=== PATIENT | male | born 1990 | race Caucasian/White ===

== ENCOUNTER 2017-08-17 22:40 | Emergency (ER) | payer MEDICARE, MEDICAID ==
[~2017-08-17] VITALS: Ht 180.3 cm; Wt 79.8 kg
[~2017-08-17 22:40] MED LIST: AMLO5TAB2 PO; AZIT250T89 PO; B12 PO; CORT80VI2 IM; CYCLOPHOSPHAMIDE IV; FOLIC ACID PO; FURO20TA3 PO; HYDR-3240 PO; HYDR-3241 PO; IRON PO; LISI-170 PO; METO25TA35 PO; MYCO500T PO; MYCO500T3 PO; OMEP-110 PO; ONDA4TAB10 PO; OXYC-306 PO; PANT40TA3 PO; POTA20PA25 PO; PRED10TA PO; PRED20TA PO; PRED50TA PO; PROM25VI5 PO; RIVA10TA PO; ZOLP10TA5 PO
[2017-08-17] MEDS ORDERED: SODIUM CHLORIDE 0.9% 1,000ML IVBOLUS ONE (23:30)
[2017-08-17] MEDS ORDERED: PROMETHAZINE 25 MG/ML, 1ML IM ONE (23:30)
[2017-08-17] MEDS ORDERED: FAMOTIDINE 20 MG/2 ML IVP ONE (23:30)
[2017-08-17] MEDS ORDERED: SODIUM CHLORIDE FLUSH 10ML SYR IVF ONE (23:30)
[2017-08-17] MEDS ORDERED: ONDANSETRON ODT 4 MG PO ONE (23:30)
[2017-08-17] MEDS ORDERED: MORPHINE SULFATE 4 MG/ML, 1ML IVPush PRN (23:30)
[2017-08-17 23:38] LABS: BASOPHILS # (AUTO) 0.02 x10^3/uL (0-0.1); BASOPHILS % (AUTO) 1 % (0-1); EOSINOPHILS # (AUTO) 0.01 x10^3/uL (0-0.4); EOSINOPHILS % (AUTO) 0 % (1-7); LYMPHOCYTES # (AUTO) 0.58 x10^3/uL (1-3.4); LYMPHOCYTES % (AUTO) 17 % (22-44); MD NO; MEAN CORPUSCULAR HEMOGLOBIN 30.1 pg (27.5-34.5); MEAN CORPUSCULAR HGB CONC 34.1 g/dL (33.2-36.2); MEAN CORPUSCULAR VOLUME 88.3 fL (81-97); MEAN PLATELET VOLUME 7.5 fL (7.4-10.4); MONOCYTES # (AUTO) 0.31 x10^3/uL (0.2-0.8); MONOCYTES % (AUTO) 9 % (2-9); NEUTROPHILS # (AUTO) 2.49 x10^3/uL (1.8-6.8); NEUTROPHILS % (AUTO) 73 % (42-75); PLATELET COUNT 354 x10^3/uL (130-400); RED BLOOD COUNT 4.08 x10^6/uL (4.38-5.82); RED CELL DISTRIBUTION WIDTH 12.7 % (9.4-14.8)
[2017-08-17] MEDS ORDERED: ONDANSETRON ODT 4 MG ONE (23:40)
[2017-08-17] MEDS ORDERED: PROMETHAZINE 25 MG/ML, 1ML ONE (23:40)
[2017-08-17] MEDS ORDERED: FAMOTIDINE 20 MG/2 ML ONE (23:40)
[2017-08-17] MEDS ORDERED: MORPHINE SULFATE 4 MG/ML, 1ML ONE (23:40)
[2017-08-17 23:46] LABS: ALANINE AMINOTRANSFERASE 70 U/L (12-78); ALBUMIN 3.2 g/dL (3.4-5.0); ANION GAP 7 mmol/L (5-15); CALCIUM 8.8 mg/dL (8.5-10.1); CHLORIDE 103 mmol/L (98-107); CREATININE 1.83 mg/dL (0.7-1.3)
[2017-08-17 23:48] LABS: ALKALINE PHOSPHATASE 93 U/L (45-117); BILIRUBIN,TOTAL 0.5 mg/dL (0.2-1.0); TOTAL PROTEIN 7.8 g/dL (6.4-8.2)
[2017-08-18 00:40] LABS: MICROSCOPIC INDICATED
[2017-08-18 00:55] LABS: CULTURE INDICATED? NO
[2017-08-18 01:22] VITALS: BP 145/78
== END 2017-08-18 01:36 | disposition home or self-care (01) ==
LOC: ED 23:25
DX: R11.2 Nausea with vomiting, unspecified (principal); R10.84 Generalized abdominal pain; R19.7 Diarrhea, unspecified; M06.9 Rheumatoid arthritis, unspecified
CPT/HCPCS: 36415; 74022; 80053; 81001; 83690; 85025; 96372; 96374; 96375; 99285; J2550; J7030; Q0162; S0028

== ENCOUNTER 2017-10-30 20:27 | Emergency (ER) | payer MEDICARE, MEDICAID ==
[~2017-10-30] VITALS: Ht 180.3 cm; Wt 85.3 kg
[2017-10-30 20:34] VITALS: BP 145/94
[2017-10-30 21:04] LABS: BASOPHILS # (AUTO) 0.03 x10^3/uL (0-0.1); BASOPHILS % (AUTO) 1 % (0-1); EOSINOPHILS % (AUTO) 0 % (1-7); LYMPHOCYTES # (AUTO) 0.97 x10^3/uL (1-3.4); LYMPHOCYTES % (AUTO) 17 % (22-44); MD NO; MEAN CORPUSCULAR HEMOGLOBIN 30.4 pg (27.5-34.5); MEAN CORPUSCULAR HGB CONC 34.2 g/dL (33.2-36.2); MEAN CORPUSCULAR VOLUME 88.9 fL (81-97); MEAN PLATELET VOLUME 7.3 fL (7.4-10.4); MONOCYTES # (AUTO) 0.43 x10^3/uL (0.2-0.8); MONOCYTES % (AUTO) 7 % (2-9); NEUTROPHILS # (AUTO) 4.47 x10^3/uL (1.8-6.8); NEUTROPHILS % (AUTO) 76 % (42-75); PLATELET COUNT 379 x10^3/uL (130-400); RED BLOOD COUNT 3.45 x10^6/uL (4.38-5.82); RED CELL DISTRIBUTION WIDTH 12.9 % (9.4-14.8)
[2017-10-30 21:08] LABS: MICROSCOPIC INDICATED
[2017-10-30 21:10] LABS: ANION GAP 7 mmol/L (5-15); CALCIUM 8.3 mg/dL (8.5-10.1); CHLORIDE 107 mmol/L (98-107); CREATININE 1.65 mg/dL (0.7-1.3)
[2017-10-30 21:25] LABS: CULTURE INDICATED? NO
== END 2017-10-30 22:31 | disposition home or self-care (01) ==
LOC: ED 21:19
DX: M54.5 Low back pain (principal); Z00.01 Encounter for general adult medical examination with abnormal findings
CPT/HCPCS: 36415; 80048; 81001; 82040; 85025; 99281; 99283; 99284

== ENCOUNTER → 2018-02-08 | Outpatient (CLI) | payer MEDICARE, MEDICAID ==
[~2018-02-08] MED LIST changes: -AMLO5TAB2 PO; +AMLO5TAB7 PO
== END | disposition home or self-care (01) ==
LOC: CFH 11:12
PROVIDERS: ATTEND Specialist
DX: Z13.820 Encounter for screening for osteoporosis (principal); M85.88 Other specified disorders of bone density and structure, other site; M32.10 Systemic lupus erythematosus, organ or system involvement unspecified; M06.9 Rheumatoid arthritis, unspecified; F17.200 Nicotine dependence, unspecified, uncomplicated; Z92.25 Personal history of immunosuppression therapy
CPT/HCPCS: 77080

== ENCOUNTER 2018-04-04 16:14 | Emergency (ER) | payer MEDICAID, MEDICARE ==
[~2018-04-04] VITALS: Ht 177.8 cm; Wt 87.1 kg
[~2018-04-04 16:14] MED LIST changes: +AMLO-150 PO; -AMLO5TAB7 PO; -RIVA10TA PO; +RIVA10TA2 PO
[2018-04-04 16:17] VITALS: BP 149/88
--- NOTE | 2018-04-04 16:44 | NUR ---
MD Gale at bedside now for assessment, patient safe in [facility], POC discussed
--- NOTE | 2018-04-04 17:10 | NUR ---
patient seated at edge of bed, appears well, accompanied by friend, MD Gale at bedside discussing discharge.
[2018-04-05] MEDS ORDERED: CYCL-259 PO (11:33)
[2018-04-05] MEDS ORDERED: METO25TA35 PO (11:33)
[2018-04-05] MEDS ORDERED: APIX5TAB PO (11:33)
[2018-04-05] MEDS ORDERED: ONDA4TAB13 SL (11:33)
[2018-04-05] MEDS ORDERED: LISI-170 PO (11:33)
[2018-04-05] MEDS ORDERED: HYDR-3653 PO (11:34)
== END 2018-04-04 17:48 | disposition home or self-care (01) ==
LOC: ED 17:42
DX: S80.02XA Contusion of left knee, initial encounter (principal); S50.02XA Contusion of left elbow, initial encounter; S09.8XXA Other specified injuries of head, initial encounter; R51 Headache; Z86.718 Personal history of other venous thrombosis and embolism; V89.2XXA Person injured in unspecified motor-vehicle accident, traffic, initial encounter; Y93.89 Activity, other specified; Y92.89 Other specified places as the place of occurrence of the external cause; Y99.8 Other external cause status
CPT/HCPCS: 70450; 99284

== ENCOUNTER 2018-04-05 11:13 | Emergency (ER) | payer MEDICARE ==
[~2018-04-05] VITALS: Ht 177.8 cm; Wt 87.2 kg
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
[2018-04-05] MEDS ORDERED: SODIUM CHLORIDE FLUSH 10ML SYR IVF ONE (11:30)
[2018-04-05] MEDS ORDERED: ONDA4TAB13 SL (11:33)
[2018-04-05] MEDS ORDERED: APIX5TAB PO (11:33)
[2018-04-05] MEDS ORDERED: CYCL-259 PO (11:33)
[2018-04-05] MEDS ORDERED: LISI-170 PO (11:33)
[2018-04-05] MEDS ORDERED: METO25TA35 PO (11:33)
[2018-04-05] MEDS ORDERED: HYDR-3653 PO (11:34)
[2018-04-05 12:26] VITALS: BP 125/75
== END 2018-04-05 12:50 | disposition home or self-care (01) ==
LOC: ED 12:10
DX: L23.89 Allergic contact dermatitis due to other agents (principal); T78.3XXA Angioneurotic edema, initial encounter; T45.1X5A Adverse effect of antineoplastic and immunosuppressive drugs, initial encounter; Y92.89 Other specified places as the place of occurrence of the external cause; Z86.718 Personal history of other venous thrombosis and embolism
CPT/HCPCS: 93005; 99283